=== PATIENT | male | born 1995 | race Two or more races ===

== ENCOUNTER 2019-06-30 12:29 | Emergency (ER) | payer SELFPAY ==
[~2019-06-30] VITALS: Ht 172.7 cm; Wt 80.7 kg
[2019-06-30 12:37] VITALS: BP 128/83
--- NOTE | 2019-06-30 13:07 | NUR ---
Patient discharged to home in stable condition. Written and verbal after care instructions given. Patient verbalizes understanding of instruction.
== END 2019-06-30 13:07 | disposition home or self-care (01) ==
LOC: ER 12:29
DX: S50.812A Abrasion of left forearm, initial encounter (principal); S50.811A Abrasion of right forearm, initial encounter; M54.2 Cervicalgia; M54.5 Low back pain; R51 Headache; V49.49XA Driver injured in collision with other motor vehicles in traffic accident, initial encounter; Y93.89 Activity, other specified; Y92.413 State road as the place of occurrence of the external cause; Y99.8 Other external cause status
CPT/HCPCS: 99283; A6403